=== PATIENT | female | born 1955 | race Caucasian/White ===

== ENCOUNTER → 2020-09-19 13:12 | Outpatient (BNVA) | payer OTHER, SELFPAY | PROVIDERS: PCP Internal Medicine; Visit Provider Orthopaedic Surgery ==

== ENCOUNTER 2022-01-02 06:32 | Outpatient (REF) | payer OTHER, SELFPAY ==
--- NOTE | ~2022-01-02 | XR_ITS ---
EXAMINATION: XR PELVIS CLINICAL INFORMATION: Pain COMPARISON: Left hip radiograph from 02/21/2008 TECHNIQUE: Single view of the pelvis FINDINGS: No acute visible fracture or dislocation. Mild degenerative changes of the bilateral femoral acetabular joints with joint space narrowing. Vascular osteophyte formation. Degenerative changes at the lumbosacral junction and inferior aspect of the bilateral sacroiliac joints. Joint spaces and alignment are otherwise maintained. Soft tissues are unremarkable. Atherosclerotic calcifications are noted. XR/XR pelvis 1-2V IMPRESSION: 1. No acute visible fracture or dislocation. 2. Mild degenerative changes of the bilateral femoral acetabular joints.
== END 2022-01-02 06:33 | disposition home or self-care (01) ==
LOC: HO.HOSX 06:32
PROVIDERS: Visit Provider Orthopaedic Surgery
DX: M25.559 Pain in unspecified hip (principal)
CPT/HCPCS: 72170

== ENCOUNTER 2022-01-24 07:34 | Day surgery (SDC) | payer OTHER, SELFPAY ==
--- NOTE | 2022-01-22 12:43 | HO.ANESPROP2 ---
Documented by User: Aleena Johnson NP 01/22/22 12:43 HPI - Anesthesia Eval Consult details Narrative: 66yo F for Colonoscopy PMFSH Active Problems Active Problems: All Active Problems (Updated 01/02/22 @ 15:50 by Oli Nelson) Trochanteric bursitis, left hip (Acute) Injury of right hip (Acute) Past Medical History Medical History (Updated 01/24/22 @ 08:08 by Monica Ivan RN) Bradycardia CAD (coronary artery disease) Hypercholesteremia Hypertension Hypothyroidism IBS (irritable bowel syndrome) STEMI (ST elevation myocardial infarction) Surgical History Surgical History (Updated 09/19/20 @ 13:32 by Elis Smith CMA) H/O lumpectomy (~1979) S/P left knee arthroscopy (~1980) Social History Social History (Updated 09/19/20 @ 13:31 by Elis Smith CMA) Patient Tobacco Use Status: Current everyday Tobacco user Are you DNR?: No Advance Directives: No Advance Directives Information Provided: Yes Current occupational status: employed 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 Allergies Allergy/AdvReac Type Severity Reaction Status Date / Time codeine [CODEINE] Allergy Unknown Headache Verified 01/24/22 07:43 Sulfa (Sulfonamide Allergy Unknown SWELLING, Verified 01/24/22 07:43 Antibiotics) hives [SULFA (SULFONAMIDE ANTIBIOTICS)] NSAIDS (Non-Steroidal AdvReac Unknown CHEST PAIN Verified 01/24/22 07:43 Anti-Inflamma [NSAIDS (NON-STEROIDAL ANTI-INFLAMMA] Home Medications Medication Instructions Recorded Confirmed Last Taken Type atorvastatin 40 mg tablet 40 mg PO DAILY 09/19/20 Unknown History escitalopram oxalate 10 mg tablet 10 mg PO DAILY 09/19/20 Unknown History (Lexapro) hyoscyamine sulfate 0.125 mg 0.125 mg PO BID-QID PRN 09/19/20 Unknown History sublingual tablet lisinopril 5 mg tablet 5 mg PO DAILY 09/19/20 Unknown History metoprolol tartrate PO 09/19/20 01/24/22 History aspirin 81 mg tablet,delayed mg 01/24/22 01/18/22 History release Exam Exam Date and Time: January 22, 2022 124 Assessment and Plan Assessment Anesthesia Assessment: Chart Reviewed Documented by User: Jazmin Braakat MD 01/24/22 08:31 [facility] Past Medical History Medical History (Updated 01/24/22 @ 08:08 by Monica Ivan RN) Bradycardia CAD (coronary artery disease) Hypercholesteremia Hypertension Hypothyroidism IBS (irritable bowel syndrome) STEMI (ST elevation myocardial infarction) Family History Family history of problems with anesthesia: No Surgical History Surgical History (Updated 09/19/20 @ 13:32 by Elis Smith CMA) H/O lumpectomy (~1979) S/P left knee arthroscopy (~1980) History of Problems with Anesthesia: No Social History Social History (Updated 09/19/20 @ 13:31 by Elis Smith CMA) Patient Tobacco Use Status: Current everyday Tobacco user Are you DNR?: No Advance Directives: No Advance Directives Information Provided: Yes Current occupational status: employed 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 Allergies Allergy/AdvReac Type Severity Reaction Status Date / Time codeine [CODEINE] Allergy Unknown Headache Verified 01/24/22 07:43 Sulfa (Sulfonamide Allergy Unknown SWELLING, Verified 01/24/22 07:43 Antibiotics) hives [SULFA (SULFONAMIDE ANTIBIOTICS)] NSAIDS (Non-Steroidal AdvReac Unknown CHEST PAIN Verified 01/24/22 07:43 Anti-Inflamma [NSAIDS (NON-STEROIDAL ANTI-INFLAMMA] Home Medications Medication Instructions Recorded Confirmed Last Taken Type atorvastatin 40 mg tablet 40 mg PO DAILY 09/19/20 Unknown History escitalopram oxalate 10 mg tablet 10 mg PO DAILY 09/19/20 Unknown History (Lexapro) hyoscyamine sulfate 0.125 mg 0.125 mg PO BID-QID PRN 09/19/20 Unknown History sublingual tablet lisinopril 5 mg tablet 5 mg PO DAILY 09/19/20 Unknown History metoprolol tartrate PO 09/19/20 01/24/22 History aspirin 81 mg tablet,delayed mg 01/24/22 01/18/22 History release Exam Airway Mallampati Class: II TM Dist: >3cm Neck ROM: Full Assessment and Plan Assessment Anesthesia Assessment: Anesthesia Plan Discussed Final Anesthetic Review Family History of Problems with Anesthesia: No History of Problems with Anesthesia: No NPO: Yes ASA Class: III Final Preanesthetic Review: No Changes in Pt Med Stat, Meds/Allgs Chart Reviewed, Consent Obtained/Reviewed and Anes Risks/Benef Reviewed Patient Risk: Intermediate Procedure Risk: Low Anesthetic Plan Anesthetic Plan: MAC: Disposition: Standard PACU
[2022-01-24 07:41] VITALS: BMI 27.8
[2022-01-24 07:44] VITALS: BP 152/87; PULSE 58; RESP 19; TEMP 36.6; O2SAT 98
[2022-01-24] MEDS: Lactated Ringers 1,000 ML 100 ML IVCONT (08:04)
--- NOTE | 2022-01-24 08:50 | P.HPSUR_ITS ---
Pre-Procedural Eval Section A Date of Service: 01/24/22 Section B Chief Complaint: IBS Details of Present Illness: see H&P no changes Relevant Family History (Specify if Yes): No Relevant Social History: None Present Medications: see Short Stay Collaborative assessment Medical History: No relevant PMH History of Previous Operations: No relevant previous surgery Allergies: Allergies Allergy/AdvReac Type Severity Reaction Status Date / Time codeine [CODEINE] Allergy Unknown Headache Verified 01/24/22 07:43 Sulfa (Sulfonamide Allergy Unknown SWELLING, Verified 01/24/22 07:43 Antibiotics) hives [SULFA (SULFONAMIDE ANTIBIOTICS)] NSAIDS (Non-Steroidal AdvReac Unknown CHEST PAIN Verified 01/24/22 07:43 Anti-Inflamma [NSAIDS (NON-STEROIDAL ANTI-INFLAMMA] Review of Systems Sugical H&P ROS: Negative: Constitution, Cardiovascular, Respiratory, Neurological, Psychiatric, Hem-Onc, Allergic/Immunologic, Gastrointestinal, Genitourinary, Musculoskeletal, Integumentary, Endocrine and Eyes/Ears/Nose/T hroat Exam Surgical H&P Exam: Normal: HEENT, Normal: Heart, Normal: Lungs, Normal: Extremities, Normal: Abdomen, Normal: Skin and Normal: Neurological Plan Diagnosis/Plan: Unchanged I have reviewed the history and physical and performed a pertinent physical examination on my patient. No changes have occurred unless specified.
[2022-01-24 09:22] VITALS: BP 118/75; PULSE 61; RESP 18; TEMP 36.6; O2SAT 99
--- NOTE | 2022-01-24 09:23 | PM.OP ---
Brief Operative Note Date of Service: 01/24/22 Pre-op diagnosis: screening Post-op diagnosis: same Procedure: colonoscopy Surgeon: Torsten Richardson Was an Factory Clerk used for this Procedure?: No Estimated blood loss (mL): 0 Pathology: none sent Condition: stable Disposition: PACU
[2022-01-24 09:37] VITALS: BP 165/98; PULSE 66; RESP 18; TEMP 36.2; O2SAT 98
--- NOTE | 2022-01-24 11:01 | OP_ITS ---
SURGEON: Torsten Richardson MD INDICATIONS: Colon cancer screening. PREOPERATIVE DIAGNOSIS: POSTOPERATIVE DIAGNOSIS: PROCEDURE PERFORMED: Colonoscopy to the terminal ileum. ESTIMATED BLOOD LOSS: COMPLICATIONS: ANESTHESIA: Monitored anesthesia care. ASSISTANTS: SPECIMENS: DESCRIPTION OF PROCEDURE: History and physical performed. The risks and benefits of the procedure were explained to the patient. Informed consent was obtained. The patient was placed in the left lateral decubitus position. A digital rectal exam was performed and was found to be normal. The Olympus pediatric video colonoscope was introduced into the rectum and advanced to the cecum without difficulty. The cecum was identified by transillumination, palpation, and identification of ileocecal valve. Examination was performed. The scope was removed. She tolerated the procedure well and was taken to recovery room in stable condition. FINDINGS: The terminal ileum was normal. This was just briefly examined. The visualized colonic mucosa was normal. The quality of the prep was good. No polyps were identified. There was mild sigmoid diverticulosis. Retroflexed examination was normal. IMPRESSION: Normal screening colonoscopy. RECOMMENDATION: 1. Follow up as needed. 2. Repeat colonoscopy is recommended in 10 years for average risk individuals. MD MEGAN Maynard/ISAAC / [id number]
== END 2022-01-24 10:01 | disposition home or self-care (01) ==
PROVIDERS: PCP Internal Medicine; Visit Provider Internal Medicine Gastroenterology
PROC: 0DJD8ZZ Inspection of Lower Intestinal Tract, Via Natural or Artificial Opening Endoscopic (ICD-10-PCS; CPT 45378; principal; 2022-01-24 08:50)
DX: Z12.11 Encounter for screening for malignant neoplasm of colon (principal); K57.30 Diverticulosis of large intestine without perforation or abscess without bleeding; K58.0 Irritable bowel syndrome with diarrhea; K21.9 Gastro-esophageal reflux disease without esophagitis; I10 Essential (primary) hypertension; E03.9 Hypothyroidism, unspecified; F41.1 Generalized anxiety disorder; I25.2 Old myocardial infarction; Z79.82 Long term (current) use of aspirin; Z79.899 Other long term (current) drug therapy; F17.210 Nicotine dependence, cigarettes, uncomplicated; Z88.2 Allergy status to sulfonamides; Z88.8 Allergy status to other drugs, medicaments and biological substances
CPT/HCPCS: 45378

== ENCOUNTER 2022-05-16 06:35 | Outpatient (REF) | payer OTHER, SELFPAY ==
[2022-05-16 06:43] LABS: MANUAL DIFF FLAG NO
[2022-05-16 07:12] LABS: Basophils Absolute Auto 0.1 X10*3/uL (0.0-0.2); Basophils Percent Auto 0.9 % (0-2); Eosinophils Absolute Auto 0.4 X10*3/uL (0.0-0.4); Hematocrit 43.8 % (37.0-47.0); Imm Gran Abs Auto 0.07 X10*3/uL (0.00-0.03); Imm Gran Pct Auto 0.5 % (0.0-0.4); Lymphocytes Absolute Auto 3.9 X10*3/uL (1.2-4.9); Lymphocytes Percent Auto 29.8 % (20-40); Mean Corpuscular Hemoglobin 29.3 pg (27.0-33.0); Mean Corpuscular Volume 91.6 fL (80.0-98.0); Mean Platelet Volume 9.8 fL (9.4-12.3); Monocytes Absolute Auto 0.9 X10*3/uL (0.1-1.2); Monocytes Percent Auto 6.7 % (2-11); Neutrophils Absolute Auto 7.6 x10*3/uL (2.0-8.3); Neutrophils Percent Auto 59.1 % (45-73); Platelet Count 302 X10*3/uL (160-400); Red Blood Count 4.78 X10*6/uL (4.20-5.50); Red Cell Distribution Width 13.2 % (11.0-16.0); White Blood Count 12.9 X10*3/uL (4.8-10.8)
[2022-05-16 07:46] LABS: Cholesterol 171 mg/dL; HDL Cholesterol 56 mg/dL; LDL Cholesterol Calculated 98 mg/dl; Triglycerides 87 mg/dL
[2022-05-16 08:20] LABS: Thyroid Stimulating Hormone 3.63 uIU/mL (0.32-4.0)
== END 2022-05-16 06:36 | disposition home or self-care (01) ==
LOC: HO.LAB 06:35
PROVIDERS: PCP Internal Medicine; Visit Provider Internal Medicine
DX: I10 Essential (primary) hypertension (principal); E78.00 Pure hypercholesterolemia, unspecified; E03.9 Hypothyroidism, unspecified; I25.10 Atherosclerotic heart disease of native coronary artery without angina pectoris; E55.9 Vitamin D deficiency, unspecified
CPT/HCPCS: 36415; 80061; 82306; 84443; 85025

== ENCOUNTER 2024-09-27 15:42 | Outpatient (AMB) | payer MEDICARE, SELFPAY ==
[2024-09-27 15:48] VITALS: BP 152/90; PULSE 68; RESP 14; TEMP 36.4; O2SAT 99; BMI 25.4
--- NOTE | 2024-09-27 15:48 | MHC.PC.OV ---
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: No Accompanied by: Self / Same As Patient Allergies codeine [CODEINE] Allergy (Unknown, Verified 09/27/24 16:38) Headache Sulfa (Sulfonamide Antibiotics) [SULFA (SULFONAMIDE ANTIBIOTICS)] Allergy (Unknown, Verified 09/27/24 16:38) SWELLING, hives NSAIDS (Non-Steroidal Anti-Inflamma [NSAIDS (NON-STEROIDAL ANTI-INFLAMMA] Adverse Reaction (Unknown, Verified 09/27/24 16:38) CHEST PAIN Medication List - Last Reconciled 09/27/24 by Melba Pinto PA-C aspirin mg atorvastatin 80 mg PO DAILY 90 days cholecalciferol (vitamin D3) 25 mcg PO DAILY coenzyme Q10 200 mg PO DAILY diazepam 5 mg PO BID PRN hyoscyamine sulfate 0.125 mg sublingual .2 to 4 times a day levothyroxine 50 mcg PO DAILY 90 days metoprolol succinate ER 25 mg PO DAILY zr-sok-LS-vit G-hbkkqd-rxxqrbw 200 mcg-15 mcg- 5 mg-1 mg (PreserVision AREDS 2 Plus Multivit) caps PO Tobacco use date assessed: 09/27/24 Fall risk assessment: 1 Fall in past year Last assessed Fall Risk: 09/27/24 Dental Screening Dental Screen Date: 09/27/24 Did you have a dental visit in the last 12 months?: Yes Did you have a dental problem in the last 6 months where you did not have access to dental care?: No [facility] Medical History (Updated 09/27/24 @ 16:46 by Melba Pinto PA-C) Heart murmur Annual physical exam TMJ (temporomandibular joint syndrome) Myofascial pain syndrome Osteoporosis GERD (gastroesophageal reflux disease) History of mammogram (~03/19/11) Bradycardia STEMI (ST elevation myocardial infarction) CAD (coronary artery disease) IBS (irritable bowel syndrome) Hypothyroidism Hypercholesteremia Hypertension Surgical History (Updated 09/27/24 @ 16:43 by Melba Pinto PA-C) History of colonoscopy (~01/24/22) H/O lumpectomy (~1979) S/P left knee arthroscopy (~1980) Family History Mother Hypertension Congestive heart failure Father No problems noted. 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 1. Little interest or pleasure in doing things: not at all 2. Feeling down, depressed, or hopeless: not at all 3. Trouble falling or staying asleep, or sleeping too much: not at all 4. Feeling tired or having little energy: not at all 5. Poor appetite or overeating: not at all 6. Feeling bad about yourself - or that you are a failure or have let yourself or your family down: not at all 7. Trouble concentrating on things, such as reading the newspaper or watching television: not at all 8. Moving or speaking so slowly that other people could have noticed. Or the opposite - being so fidgety or restless that you have been moving around a lot more than usual: not at all 9. Thoughts that you would be better off or of hurting yourself in some way: not at all Total score: 0 Depression Screening Interpretation: Negative Depression Screening Done: Yes 07646 - PHQ-9 Billing: Yes Source: Developed by Drs. Paul Tate, Leia Samano, Valentín Gaona and colleagues, with an educational stephani from [employer]. Thrive Questionnaire Date Thrive assessed: 09/27/24 I am a: Patient What is your living situation today?: I have a steady place to live Within the past 12 months, did the food you bought not last and you didn't have the money to get more?: Never true Within the past 12 months, did you worry whether your food would run out before you got money to buy more?: Never true Do you have trouble paying for medicines?: No Do you have trouble getting transportation to medical appointments?: No Do you have trouble paying your heating and electricity bill?: No Do you have trouble taking care of your child, family member or friend?: No Do you have trouble with day-to-day activities such as bathing, preparing meals, shopping, managing finances, etc.?: No Are you currently unemployed and looking for a job?: No Are you interested in more education?: No THRIVE Score: 0 AUDIT C Alcohol Use Questionnaire (AUDIT-C) 1. How often do you have a drink containing alcohol?: Monthly or less 2. How many drinks containing alcohol do you have on a typical day when you are drinking?: 1 or 2 3. How often do you have six or more drinks on one occasion?: Never Total Score: 1 Score Reviewed/Action Taken: No LAKESHA-7 AMB Questionnaire LAKESHA-7 Date LAKESHA - 7 assessed: 09/27/24 Feeling nervous, anxious, or on edge: 0 = Not at all Not being able to stop or control worryin = Not at all Worrying too much about different things: 0 = Not at all Trouble relaxin = Not at all Being so restless that it is hard to sit still: 0 = Not at all Becoming easily annoyed or irritable: 0 = Not at all Feeling afraid as if something awful might happen: 0 = Not at all Total LAKESHA-7 score (0-4 normal; 5-9 mild; 10-14 moderate; 15-21 severe): 0 Source: Developed by Drs. Paul Tate, Leia Samano, Valentín Gaona and colleagues, with an educational stephani from [employer]. LAKESHA-7 Assessment Billing LAKESHA-7 Assessment Tool: LAKESHA-7 Assessment 78800 Physical exam (Primary Care) Vital Signs: Last Vital Signs Temp 97.6 F 09/27/24 15:48 Pulse 68 09/27/24 15:48 Resp 14 09/27/24 15:48 BP 152/90 H 09/27/24 15:48 Pulse Ox 99 09/27/24 15:48 Oxygen Delivery Method Room Air 09/27/24 15:48 Care Plan Goal for BP management: <130/80 patient to continue her metoprolol 25 mg. If blood pressure remains elevated we will increase to 50 mg. BMI result Body Mass Index 25.4 BMI Assessment/Plan discussion: High BMI High, discussed plan: lifestyle, weight reduction, dietary, physical activity and alcohol moderation Tobacco/Smoking Status: Tobacco use Status Tobacco use date assessed 09/27/24 09/27/24 15:59 Patient Tobacco Use Status Current everyday Tobacco 09/27/24 15:58 PHQ-9: PHQ-9 Score PHQ-9: Total score 0 09/27/24 16:03 Depression Screening Interpretation: Negative Thrive Assessment: Date of Thrive Assessment Date Thrive assessed 09/27/24 09/27/24 15:59 Coding Level of Care Code New Pt Prev Care >65yr (72395) Diagnoses GERD (gastroesophageal reflux disease) K21.9 Osteoporosis M81.0 Myofascial pain syndrome M79.18 TMJ (temporomandibular joint syndrome) M26.609 Hypertension I10 Hypercholesteremia E78.00 Hypothyroidism E03.9 STEMI (ST elevation myocardial infarction) I21.3 IBS (irritable bowel syndrome) K58.9 CAD (coronary artery disease) I25.10 Heart murmur R01.1 Annual physical exam Z00.00 Additional Codes PHQ-9 - 51376 - PHQ-9 Billing: Yes ([id number]) LAKESHA-7 Assessment Billing - LAKESHA-7 Assessment Tool: LAKESHA-7 Assessment 74523 ([id number]) Assessment & Plan Assessment & Plan (1) GERD (gastroesophageal reflux disease): Code(s): K21.9 - Gastro-esophageal reflux disease without esophagitis Category: Medical Plan: Condition is chronic and stable without any medication. Will continue to monitor (2) Osteoporosis: Code(s): M81.0 - Age-related osteoporosis without current pathological fracture Category: Medical Plan: Patient to continue vitamin-D supplement 25 mcg daily. Condition is chronic and stable continue to monitor. (3) Myofascial pain syndrome: Code(s): M79.18 - Myalgia, other site Category: Medical Plan: Patient to continue diazepam 5 mg p.o. b.i.d.. Condition is chronic and stable continue to monitor. (4) TMJ (temporomandibular joint syndrome): Code(s): M26.609 - Unspecified temporomandibular joint disorder, unspecified side Category: Medical Plan: Patient to continue diazepam 5 mg p.o. b.i.d.. Condition is chronic and stable continue to monitor. (5) Hypertension: Code(s): I10 - Essential (primary) hypertension Category: Medical Plan: BP Goal <130/80. Patient's blood pressure 152/90. Although reports her blood pressure normally is not this high. She did not want to increase her metoprolol today she will monitor her blood pressure and she will call us if her blood pressure is still remaining elevated to increase her metoprolol from 25 mg to 50 mg. Patient to continue aspirin, atorvastatin 80 mg, coenzyme Q10 200 mg daily, metoprolol extended release 25 mg daily. Condition is chronic and stable continue to monitor. (6) Hypercholesteremia: Code(s): E78.00 - Pure hypercholesterolemia, unspecified Category: Medical Plan: Patient to continue aspirin, atorvastatin 80 mg, coenzyme Q10 200 mg daily, metoprolol extended release 25 mg daily. Condition is chronic and stable continue to monitor. (7) Hypothyroidism: Code(s): E03.9 - Hypothyroidism, unspecified Category: Medical Plan: Patient to continue levothyroxine 50 mcg daily. Condition is chronic and stable continue to monitor. (8) STEMI (ST elevation myocardial infarction): Comment: 12/2016 Code(s): I21.3 - ST elevation (STEMI) myocardial infarction of unspecified site Category: Medical Plan: Patient to continue aspirin, atorvastatin 80 mg, coenzyme Q10 200 mg daily, metoprolol extended release 25 mg daily. Condition is chronic and stable continue to monitor. (9) IBS (irritable bowel syndrome): Code(s): K58.9 - Irritable bowel syndrome, unspecified Category: Medical Plan: Patient to continue hysocyamine sulfate 0.125 mg sublingual 2 to 4 times a day. Condition is chronic and stable continue to monitor. (10) CAD (coronary artery disease): Code(s): I25.10 - Atherosclerotic heart disease of [place] coronary artery without angina pectoris Category: Medical Plan: Patient to continue aspirin, atorvastatin 80 mg, coenzyme Q10 200 mg daily, metoprolol extended release 25 mg daily. Condition is chronic and stable continue to monitor. (11) Heart murmur: Code(s): R01.1 - Cardiac murmur, unspecified Category: Medical Plan: Condition is chronic and stable continue to monitor. (12) Annual physical exam: Code(s): Z00.00 - Encounter for general adult medical examination without abnormal findings Category: Medical Plan Plan Patient was informed and verbally consented to the use of an ambient scribe for clinic note documentation during this visit. 1. Irritable Bowel Syndrome Ibs Management with as-needed use of hyoscyamine. 2. Vitamin D Deficiency Continuation of vitamin D supplements. 3. Hypothyroidism Established levothyroxine dose maintained, reevaluation per annual check-ups. 4. Hypertension Current metoprolol dosage continues with monitoring and periodic reassessment. 6. History Of Lyme Disease No immediate course of action, acknowledging historical clearance. 7. Temporomandibular Joint Dysfunction Tmj Diltiazem support during acute exacerbations such as dental procedures. 9. Heart Murmur Unspecified Etiology Monitoring during consultations, advisements if changes arise. Discussion Notes I discussed the management of her chronic conditions, including hypertension control with metoprolol and watching for elevated readings. We discussed the importance of regular monitoring of lipid levels while she continues atorvastatin 80 mg and maintaining vitamin D supplementation for deficiency. We agreed that her thyroid function appears stable on levothyroxine. I emphasized the need for diazepam during dental procedures to manage TMJ and anxiety episodes. I advised the completion of regular mammograms and cervical cancer screens and scheduling timely appointments. If blood pressure readings show consistent elevations, I recommended promptly following up for possible medication adjustment. Her heart murmur, acknowledged in past records, remains under surveillance without causing distress. Orders: Orders Comprehensive [place]. Panel Fast Today Z00.00 - Encounter for general adult medical examination without abnormal findings C Reactive Protein Today Z00.00 - Encounter for general adult medical examination without abnormal findings Hemoglobin A1c Today Z00.00 - Encounter for general adult medical examination without abnormal findings Lipid Panel Today Z00.00 - Encounter for general adult medical examination without abnormal findings Magnesium Today Z00.00 - Encounter for general adult medical examination without abnormal findings Complete Blood Count Auto Diff Today Z00.00 - Encounter for general adult medical examination without abnormal findings Liver Panel Today Z00.00 - Encounter for general adult medical examination without abnormal findings Vitamin B1 Today Z00.00 - Encounter for general adult medical examination without abnormal findings TSH reflex Free T4 Today Z00.00 - Encounter for general adult medical examination without abnormal findings Vitamin B12 and Folate Today Z00.00 - Encounter for general adult medical examination without abnormal findings Vitamin D 25-OH Total Today Z00.00 - Encounter for general adult medical examination without abnormal findings MM screening mammo BI Today Z12.31 - Encounter for screening mammogram for malignant neoplasm of breast Referrals [facility] Referral Z12.4 - Encounter for screening for malignant neoplasm of cervix Medications: New metoprolol succinate ER 25 mg PO DAILY 90 tabs 1RF diazepam 5 mg PO BID PRN 90 tabs 1RF muscle spasm Patient Instructions: Patient Instructions - Continue current medication regimen as prescribed. - Monitor blood pressure regularly; notify for persistent elevation. - Schedule and complete pending mammogram and cervical cancer screenings. - Follow up with any concerning symptoms or if blood pressure readings remain high. - Attend regular annual check-ups and screenings as advised. - Practice ankle elevation if swelling occurs. - Consult provided contacts if unable to access medical portals or for prescription refills. Scribe Plan - Not visible on output: History of Present Illness The patient is a 68-year-old female presenting for a annual physical examination and prescription refills. During her last health evaluation approximately one year ago, regular monitoring identified hypertension and hyperlipidemia as her primary chronic issues. Blood work from 2021 provided baseline data for condition monitoring. She requires ongoing management for hypothyroidism and vitamin D deficiency and utilizes levothyroxine and vitamin D supplements daily. Her TMJ impacts her during dental work, managing it with diazepam. Her anxiety and IBS are controlled with diazepam and hyoscyamine as needed for symptoms. She experienced a fall in winter due to tripping, with no lingering symptoms leading to medical evaluation. The exact details of her previous Lyme disease provisions and its current non-activity were confirmed. Her cardiac history includes a murmur, not impacting her general physical capability or quality of life. She remains cognizant of blood pressure levels, showing occasional variations but remaining largely managed with current prescriptions. 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 - Lives independently, able to perform ADLs (Activities of Daily Living) and manage home responsibilities effectively. - Regular eye exams at [facility] in [place] every two years. - Has children and a history of residential familiarity with acquaintances in healthcare. Physical Exam Appearance: Alert. Oriented X3. No acute distress. Head: Normal external exam. Normocephalic. Atraumatic. Eyes: Pupils are equal, round, and reactive to light. Extraocular movements intact. Conjunctiva and sclera normal. Eyelids normal. Ears: External auditory canal normal. Tympanic membranes normal. A little bit of wax noted, more in the left ear than the right. Throat: Pharynx normal. Uvula midline. Moist mucous membranes. Neck: Normal inspection. Neck supple. Full range of motion. No adenopathy. Thyroid Normal. No meningeal signs. No neck mass noted. Cardiovascular: Normal heart rate and rhythm. Heart sound normal. Murmur noted. Pulses normal throughout. Respiratory: No respiratory distress. Painless inspiration. Breath sounds normal. No wheezes/rales/rhonchi noted. Chest nontender. No accessory muscle usage noted or decreased air movement noted. Abdomen: Soft and nontender. Bowel sounds normal in all 4 quadrants. No distention noted. No organomegaly noted. No visible injury noted. Back: No costovertebral angle tenderness. Full range of motion noted. Skin: Skin warm and dry. Normal skin color. Normal skin turgor. No rashes/lesions/lacerations noted. Extremities: No lower extremity edema. Extremities exhibit normal range of motion. Extremities nontender. Mild ankle swelling noted, decreases with elevation. Neuro: Oriented X 3. No motor deficit. No sensory deficit. Reflexes normal.
--- OUTSIDE RECORDS SUMMARY | 2024-09-27 18:59 | XMS_ITS | Patient Health Record ---
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 Name Role Phone Milvia (RETIRED) Paul PATEL Primary Care Provid er Unavailable Torsten Richardson Jr Unavailable Allergies Allergen (clinical drug ingredient) Drug/Non Drug Allergy documented on EMR Reaction Allergy Type Onset Date Status Sulfa Unknown Drug Allergy Active atorvastatin Lipitor Unknown Drug Allergy Acti ve Reason For Referral No Information Medications Medication SIG (Take, Route, Frequency, Duration) Notes Start Date End Date Status Vitamin D 50 MCG (1999) 1 capsule Ora lly Once a day Active Aspirin Adult Low Dose Active PreserVision AREDS A ctive CoQ-10 Active Metoprolol Succinate ER 25 MG 1 tablet Orally Once a day Active Levothyroxine Sodium 50 MCG 1 tablet in the morning on an empty stomach Orally Once a day Active Hyoscyamine Sulfate 0.125 MG 2 tablet un edwina the tongue and allow to dissolve before meals as needed Orally TID Active Lexapro 10 MG 1 tablet Orally Once a day Active MiraLax (colon prep) 17 GM/SCOOP mixed with Gatorade or Crystal Light Orally begin at 5:00 p.m. the day before the procedure for 1 day 12/19/2021 Active Valium 5 MG 1 tablet as needed Orally Twice a day Active Atorvastatin Calcium 80 MG TAKE 1 TABLET BY MOUTH EVERY DAY Oral for 90 Active Imodium A-D Active Immunizations Vaccine Route Administration Date Status Comme nts Influenza Unknown 04/19/2021 Administered Social History Tobacco Use: Social History Observation Description Date Details (start date - stop date) Current Smoker NA - NA Tobacco Use/Smoking Question Answer Notes Patient is a current smoker How often do you smoke cigarettes? every day How many cigarettes a day do you smoke? 11-20 Problems Problem Type SNOMED Code ICD Code Onset Dates Problem Status W/U Status Risk Notes Problem [id number] Colon cancer screening (Z12.11) Active confirmed Problem [id number] Irritable bowel syndrome with diarrhea (K58.0) Active confirmed Problem [id number] senior care (current) use of aspirin (Z79.82) Active confirmed Plan Of Treatment Future Test Test Name Order Date COLONOSCOPY 12/19/2021 Insurance Providers Payer Name Payer Address Payer Phone Subscriber Number Group Number Insured Name Patient Relationship to Insured Coverage Start Date Coverage End Date [facility] [address] [place] [address] [id number] MADONNA WHIPPLE Self - patient is the insured Medical (General) History Medical History History ICD Code colonoscopy 08-08-2009 hyperplastic polyp , ten-year followup Coronary artery disease with history of STEMI, 2015 prior [place] [facility], Dr. Yoo diverticulosis gerd hypothyroidism Hypertension anxiety Hypothyroidism TMJ syndrome Surgical History Surgery Date(Month/Year) left knee arthroscopy lumpectomy, left breast
== END 2024-09-27 16:23 | disposition home or self-care (01) ==
LOC: HO.HMCSH 15:42
PROVIDERS: PCP Internal Medicine; Visit Provider Physician Assistant Medical
DX: Z00.00 Encounter for general adult medical examination without abnormal findings (principal); K21.9 Gastro-esophageal reflux disease without esophagitis; M81.0 Age-related osteoporosis without current pathological fracture; M79.18 Myalgia, other site; M26.609 Unspecified temporomandibular joint disorder, unspecified side; I25.2 Old myocardial infarction; I10 Essential (primary) hypertension; E78.00 Pure hypercholesterolemia, unspecified; E03.9 Hypothyroidism, unspecified; K58.9 Irritable bowel syndrome, unspecified; I25.10 Atherosclerotic heart disease of native coronary artery without angina pectoris; R01.1 Cardiac murmur, unspecified

== ENCOUNTER → 2024-09-27 15:42 | Outpatient (BNVA) | payer MEDICARE, SELFPAY | PROVIDERS: PCP Internal Medicine; Visit Provider Physician Assistant Medical | DX: Z00.00 Encounter for general adult medical examination without abnormal findings (principal); K21.9 Gastro-esophageal reflux disease without esophagitis; I10 Essential (primary) hypertension; M81.0 Age-related osteoporosis without current pathological fracture; M79.18 Myalgia, other site; M26.609 Unspecified temporomandibular joint disorder, unspecified side; E78.00 Pure hypercholesterolemia, unspecified; E03.9 Hypothyroidism, unspecified; I21.3 ST elevation (STEMI) myocardial infarction of unspecified site; K58.9 Irritable bowel syndrome, unspecified; I25.10 Atherosclerotic heart disease of native coronary artery without angina pectoris; R01.1 Cardiac murmur, unspecified | CPT/HCPCS: 96127; 99387 ==